=== PATIENT | male | born 1945 | race Caucasian/White ===

== ENCOUNTER 2018-01-19 02:47 | Emergency (ER) | payer BC, MEDICARE, OTHER ==
--- NOTE | 2018-01-19 03:04 | ED Physician Documentation ---
PD HPI CHEST PAIN - Stated complaint Stated Complaint: CHEST PX - Chief complaint Chief Complaint: Cardiac - History obtained from History obtained from: Patient, Family - History of Present Illness Timing - onset: How many hours ago (6) Timing - onset during: Rest Timing - duration: Seconds Timing - details: Abrupt onset, Still present, Intermittant Pain level max: 5 Pain level now: 4 Quality: Sharp Location: Other (Midsternal) Radiation: Other ( no radiation) Improved by: Nothing Worsened by: No: Exertion, Inspiration, Eating, Movement, Palpation, Position Associated symptoms: No: Shortness of air, Diaphoresis, Nausea, Vomiting, Feeling faint / dizzy, General Weakness, Palpitations, Cough Similar symptoms before: Work up / diagnostics Recently seen: Not recently seen - Additional information Additional information: 72-year-old male with history of hypertension, diabetes, cholesterol, 2 stents from 2006 here with complaint of midsternal chest pain that started 6 hours ago. Denies any associated symptoms. Patient stated he took his baby aspirin yesterday and took one nitro Tonightbut it did not help and just made it worse. Patient stated he takes his blood pressure meds but they do not usually help because his blood pressure still high. Patient stated he had a big Thanksgiving dinner from 4:30 PM to 6 PM and 3 hours later he started having pain. He took some Tums but it did not help his pain. Patient stated he was in [place] and flew for 17 hours 2 weeks ago. Review of Systems Ten Systems: 10 systems reviewed and negative Constitutional: denies: Fever Cardiac: reports: Chest pain / pressure Respiratory: denies: Dyspnea GI: denies: Abdominal Pain, Nausea, Vomiting Neurologic: denies: Generalized weakness PD PAST MEDICAL HISTORY - Present Medications Home Medications: Ambulatory Orders Medication Instructions Recorded Confirmed Aspirin [Aspirin EC] 1 tab PO DAILY 01/19/18 01/19/18 Canagliflozin [Invokana] 300 mg PO DAILY 01/19/18 01/19/18 Fenofibrate Nanocrystallized 145 mg PO DAILY 01/19/18 01/19/18 [Fenofibrate] Hydrocodone/Acetaminophen [Vicodin 1 tab PO Q6H PRN 01/19/18 01/19/18 5-300 mg Tablet] RX: Carvedilol 1 tab PO DAILY 01/19/18 01/19/18 RX: Isosorbide Mononitrate ER 30 mg PO DAILY 01/19/18 01/19/18 [Imdur] RX: Metformin HCl 1 tab PO BID 01/19/18 01/19/18 RX: Rosuvastatin Calcium 1 tab PO DAILY 01/19/18 01/19/18 RX: amLODIPine [Norvasc] 5 mg PO DAILY 01/19/18 01/19/18 - Allergies Allergies/Adverse Reactions: Allergies Allergy/AdvReac Type Severity Reaction Status Date / Time Penicillins Allergy Hives Verified 01/19/18 02:53 PD ED PE NORMAL - Vitals Vital signs reviewed: Yes - General General: Alert and oriented X 3, No acute distress, Well developed/nourished - HEENT HEENT: Moist mucous membranes - Neck Neck: Supple, no meningeal sign - Cardiac Cardiac: RRR, Strong equal pulses, Other (Grade 2 systolic and murmur) - Respiratory Respiratory: No respiratory distress, Clear bilaterally - Abdomen Abdomen: Normal bowel sounds, Soft, Non tender, Non distended - Back Back: No CVA TTP - Derm Derm: Normal color, Warm and dry - Extremities Extremities: No deformity - Neuro Neuro: Alert and oriented X 3 - Psych Psych: Normal mood, Normal affect Results - Vitals Vitals: Vital Signs - 24 hr 01/19/18 01/19/18 01/19/18 02:50 02:55 04:34 Heart Rate 85 55 L Respiratory 15 14 Rate Blood Pressure 182/88 H 155/84 H Blood Pressure 176/92 H [Left] Blood Pressure 193/108 H [Right] O2 Saturation 95 96 01/19/18 05:43 Heart Rate 54 L Respiratory 15 Rate Blood Pressure 164/88 H Blood Pressure [Left] Blood Pressure [Right] O2 Saturation 96 Oxygen O2 Source Room air - EKG (time done) 0252 Rate: Rate (enter#) Rhythm: NSR [place]: LAD Intervals: Normal [place] QRS: Normal, LVH Ischemia: Normal ST segments - Labs Labs: Laboratory Tests 01/19/18 01/19/18 01/19/18 02:50 02:50 02:50 WBC 6.8 RBC 4.80 Hgb 14.9 Hct 43.3 MCV 90.0 MCH 31.1 H MCHC 34.5 RDW 13.6 Plt Count 190 MPV 9.5 Neut # (Auto) 3.6 Lymph # (Auto) 2.1 [place] # (Auto) 0.6 Eos # (Auto) 0.4 Baso # (Auto) 0.1 Absolute Nucleated RBC 0.01 Nucleated RBC % 0.2 D-Dimer Sodium 135 Potassium 3.6 Chloride 100 L Carbon Dioxide 28 Anion Gap 7.0 BUN 26 H Creatinine 1.2 Estimated GFR (MDRD) 59 L Glucose 240 H Calcium 9.7 Total Bilirubin 0.6 AST 25 ALT 25 Alkaline Phosphatase 69 Troponin I < 0.04 Total Protein 7.5 Albumin 4.6 Globulin 2.9 Albumin/Globulin Ratio 1.6 Lipase 30 01/19/18 01/19/18 02:56 05:13 WBC RBC Hgb Hct MCV MCH MCHC RDW Plt Count MPV Neut # (Auto) Lymph # (Auto) [place] # (Auto) Eos # (Auto) Baso # (Auto) Absolute Nucleated RBC Nucleated RBC % D-Dimer < 200.0 L Sodium Potassium Chloride Carbon Dioxide Anion Gap BUN Creatinine Estimated GFR (MDRD) Glucose Calcium Total Bilirubin AST ALT Alkaline Phosphatase Troponin I < 0.04 Total Protein Albumin Globulin Albumin/Globulin Ratio Lipase PD MEDICAL DECISION MAKING - ED course Complexity details: reviewed results, re-evaluated patient, considered differential (ACS, PE, GERD, TDA, pneumonia), d/w patient, d/w family ED course: patient ambulated to the hallway to urinate without any increase in chest discomfort. He states that when he is active he does not have any chest pain. But when he is not doing anything or resting that is when he feels the chest discomfort. Patient stated that his chest discomfort would come and go but w ould come for a couple of seconds and then will return in 15 seconds. And he noted that this is not his usual heart attack that occurred in 2006 when he had 2 stents. It is different because this chest discomfort today does not have any associated symptoms like nausea, shortness of breath or sweats. So he believes that this may not be cardiac related. He also claimed that he just had a nuclear med stress test done last month before he left for [place] and his banking services clerk was not concerned about it. His banking services clerk told him that his current nuclear med stress test is unchanged from 2015 and in 2014 there was some defect just like today and when they did the angiogram it was negative.Discussed with patient plan of disposition such as transferring him to another hospital where there is a banking services clerk. Patient stated he does not want to be transferred nor does he want to be admitted. He will be calling his banking services clerk today and let him know that he was in the emergency room. He stated if he is worse he will return to the emergency room or Go to where his banking services clerk Works at [facility]. Patient agreed to second heart enzyme.05 45 patient states his chest discomfort is gone. He was informed his second troponin is negative. Patient wants to go home. He will call his banking services clerk later on today. He will follow-up with his primary doctor and get a referral for EGD in the near future. If worse he will return to the emergency room Departure - Departure Disposition: 01 Home, Self Care Condition: Stable Instructions: ED Chest Pain Atypical Unkn Cause Comments: Call your primary doctor and banking services clerk today for reevaluation. Consider a outpatient endoscopy in the near future. If worse return to the emergency room.
[2018-01-19 03:10] LABS: BASOPHILS # (AUTO) 0.1 10^3/uL (0.0-0.1); BASOPHILS % (AUTO) 0.8 %; EOSINOPHILS # (AUTO) 0.4 10^3/uL (0.0-0.7); EOSINOPHILS % (AUTO) 6.4 %; HGB - HEMOGLOBIN 14.9 g/dL (14.0-18.0); LYMPHOCYTES # (AUTO) 2.1 10^3/uL (1.5-3.5); LYMPHOCYTES % (AUTO) 31.1 %; MEAN CORPUSCULAR HEMOGLOBIN 31.1 pg (27.0-31.0); MEAN CORPUSCULAR HGB CONC 34.5 g/dL (32.0-36.0); MEAN PLATELET VOLUME 9.5 fL (7.4-11.4); MONOCYTES # (AUTO) 0.6 10^3/uL (0.0-1.0); MONOCYTES % (AUTO) 8.2 %; NEUTROPHILS # (AUTO) 3.6 10^3/uL (1.5-6.6); NEUTROPHILS % (AUTO) 53.5 %; PLT - PLATELET COUNT 190 10^3/uL (130-450); RED CELL DISTRIBUTION WIDTH 13.6 % (12.0-15.0); WHITE BLOOD COUNT 6.8 x10^3/uL (4.8-10.8)
[2018-01-19 03:26] LABS: ALBUMIN 4.6 g/dL (3.2-5.5); ALBUMIN/GLOBULIN RATIO 1.6 (1.0-2.2); BILIRUBIN,TOTAL 0.6 mg/dL (0.2-1.0); CALCIUM 9.7 mg/dL (8.5-10.3); CREATININE 1.2 mg/dL (0.6-1.2); TOTAL PROTEIN 7.5 g/dL (6.7-8.2)
--- NOTE | 2018-01-19 03:29 | XRAY Report ---
Reason: chest pain Procedure Date: 01/19/2018 Accession Number: [id number] / [id number] Procedure: XR - Chest 1 View X-Ray CPT Code: 98123 FULL RESULT: EXAM: CHEST RADIOGRAPHY EXAM DATE: 01/19/2018 03:23 AM. CLINICAL HISTORY: Chest pain. COMPARISON: None. TECHNIQUE: 1 view. FINDINGS: Lungs/Pleura: No focal opacities evident. No pleural effusion. No pneumothorax. Mediastinum: Within exam limitations, the cardiomediastinal contour is normal. Other: None. IMPRESSION: Normal single view chest. RADIA
[2018-01-19] MEDS ORDERED: NITROGLYCERIN 2% PASTE TOP STA (03:31)
[2018-01-19] MEDS ORDERED: ASPIRIN CHEW 81 MG TABLET PO STA (03:31)
[2018-01-19] MEDS ORDERED: MORPHINE 2 MG/ML CARPUJECT IVP STA (03:31)
[2018-01-19 05:43] VITALS: BP 164/88
== END 2018-01-19 05:57 | disposition home or self-care (01) ==
LOC: ED 02:47
DX: R07.9 Chest pain, unspecified (principal); R01.1 Cardiac murmur, unspecified; I25.2 Old myocardial infarction; Z95.5 Presence of coronary angioplasty implant and graft; I10 Essential (primary) hypertension; E11.9 Type 2 diabetes mellitus without complications; Z79.84 Long term (current) use of oral hypoglycemic drugs; Z79.82 Long term (current) use of aspirin
CPT/HCPCS: 36415; 71045; 80053; 83690; 84484; 85025; 85379; 93005; 96374; 99284; A9270